=== PATIENT | female | born 1955 | race Caucasian/White ===

== ENCOUNTER → 2017-06-16 | Outpatient (CLI) | payer OTHER ==
--- NOTE | 2017-06-17 09:34 | RAD ---
DATE: 06/16/2017 EXAM: DIGITAL SCREEN BILAT W/CAD HISTORY: Routine screening COMPARISON: 05/02/2016 This study was interpreted with the benefit of Computerized Aided Detection (CAD). The breast parenchyma shows scattered fibroglandular densities. Breast parenchyma level B. FINDINGS: The fibroglandular densities are mildly asymmetric with increased density in the lateral right breast compared to the left. No new or enlarging breast densities are seen. An old biopsy marker is again noted laterally in the left breast. No suspicious microcalcifications are identified. IMPRESSION: Stable mammograms without evidence of malignancy. BI-RADS CATEGORY: 2 BENIGN FINDING(S) RECOMMENDED FOLLOW-UP: 12M 12 MONTH FOLLOW-UP PQRS compliance statement: Patient information was entered into a reminder system with a target due date for the next mammogram. Mammography is a sensitive method for finding small breast cancers, but it does not detect them all and is not a substitute for careful clinical examination. A negative mammogram does not negate a clinically suspicious finding and should not result in delay in biopsying a clinically suspicious abnormality. "Our facility is accredited by the [employer] Mammography [employer]."
== END | disposition home or self-care (01) ==
LOC: MAMMO 16:00
PROVIDERS: ATTEND Family Medicine
DX: Z12.31 Encounter for screening mammogram for malignant neoplasm of breast (principal)
CPT/HCPCS: G0202; 77067

== ENCOUNTER → 2018-08-26 | Outpatient (CLI) | payer OTHER ==
--- NOTE | 2018-08-26 11:22 | RAD ---
DATE: 08/26/2018 EXAM: MAMMO JOSE SCREENING BILATERAL HISTORY: Routine screening COMPARISON: 06/16/2017 This study was interpreted with the benefit of Computerized Aided Detection (CAD). Breast Density: SCATTERED The breast parenchyma shows scattered fibroglandular densities. Breast parenchyma level B. FINDINGS: 2-D and 3-D tomosynthesis imaging was performed in CC and MLO projections. No breast biopsy marker is present laterally on the left. There are scattered small nodular opacities in the breasts, better demonstrated on the current tomosynthesis images. A 6 mm smooth nodule in the medial aspect of the left breast at the 8-9:00 location may be new. No spiculated mass or architectural distortion is evident. No suspicious microcalcifications are evident. IMPRESSION: Small medial left breast nodule which may be new or may simply be better demonstrated on today's tomosynthesis imaging. Sonographic evaluation is suggested. BI-RADS CATEGORY: 0 INCOMPLETE: NEEDS ADDITIONAL IMAGING EVALUATION AND/OR PRIOR MAMMOGRAMS FOR COMPARISON. RECOMMENDED FOLLOW-UP: ADD ADDITIONAL IMAGING PQRS compliance statement: Patient information was entered into a reminder system with a target due date for the next mammogram. Mammography is a sensitive method for finding small breast cancers, but it does not detect them all and is not a substitute for careful clinical examination. A negative mammogram does not negate a clinically suspicious finding and should not result in delay in biopsying a clinically suspicious abnormality. "Our facility is accredited by the [employer] Mammography Program."
== END | disposition home or self-care (01) ==
LOC: MAMMO 10:26
PROVIDERS: ATTEND Family Medicine
DX: Z12.31 Encounter for screening mammogram for malignant neoplasm of breast (principal)
CPT/HCPCS: 77063; 77067

== ENCOUNTER → 2018-09-01 | Outpatient (CLI) | payer OTHER ==
--- NOTE | 2018-09-01 11:12 | RAD ---
Left breast ultrasound, 09/01/2018: History: Breast nodule A targeted ultrasound exam of the left breast was performed at the 8-9:00 location. At the 8:00 location approximately 3 cm from the nipple there is a small hypoechoic nodule measuring 4 x 3 x 5 mm. There are low level internal echoes. No definite posterior acoustic enhancement or shadowing is seen. The nodule is taller than wide. This probably corresponds to the mammographic abnormality, however, it cannot be stated with certainty. At the 8:00 location approximately 10 cm the nipple there is a 6 mm superficial hyperechoic nodule. There is internal color flow. This appearance is most commonly due to a lipoma. The mammogram demonstrates only fatty type shadows in this region. No other abnormality is detected. IMPRESSION: 1. Small 8:00 left breast nodule which probably corresponds to the mammographic abnormality. Ultrasound-guided biopsy is suggested for further evaluation. 2. Probable small superficial lipoma in the medial left breast. Note: The findings were discussed with patient at the time of the examination understands the recommendation for biopsy. She will follow-up with the ordering physician. BI-RADS 4-suspicious abnormality
== END | disposition home or self-care (01) ==
LOC: US 10:15
PROVIDERS: ATTEND Family Medicine
DX: N63.24 Unspecified lump in the left breast, lower inner quadrant (principal)
CPT/HCPCS: 76641

== ENCOUNTER → 2018-09-24 | Outpatient (CLI) | payer OTHER ==
--- NOTE | 2018-10-04 15:09 | PATHOLOGY ---
[facility] Accession Number: [id number] . 01 Material submitted: . LEFT BREAST TISSUE . 01 Clinical history: . Left breast mass . 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 - Fibrocystic changes with the following components: - Stromal fibrosis. - Duct ectasia. - Cystic change. - Apocrine metaplasia. . (JPM:mm; 10/04/2018) [facility]/10/04/2018 . 02 Comment: There is no atypia or evidence of malignancy. . (JPM:mml; 10/04/2018) . 02 Electronically signed: . Leon Carver MD, Pathologist NPI- [id number] . 01 Gross description: . Received in formalin labeled "Cheryl, Claudia, left breast," are multiple needle cores of yellow-sy fibrofatty tissue measuring 2.5 x 0.6 x 0.2 cm in aggregate dimensions. The tissue is submitted in its entirety in cassette A1 through A3. The cold ischemic time is 2 minutes. The total formalin fixation time is 11 hours and 36 minutes. (TSD; 09/24/2018) TOB/TOB . 02 Pathologist provided ICD-10: N60.12, N60.32, N60.42, N60.82, N62 . 02 CPT . 837049 Specimen Comment: A courtesy copy of this report has been sent to Specimen Comment: [phone], , . Specimen Comment: Report sent to ,DR LYNNE / DR ALAN Specimen Comment: A duplicate report has been generated due to demographic updates. Performed at: 01 [facility] [address], [place], [place] [id number] MD Steven Murcia MD Phone: [phone] Performed at: [address] [facility] [id number] [place], [place] [id number] MD Leon Carver MD Phone: [phone]
--- NOTE | 2018-10-05 08:42 | RAD ---
Ultrasound-guided left breast biopsy, 09/24/2018: History: Suspicious breast nodule Previous studies demonstrated a suspicious nodule at the 8:00 location in the left breast. Under local anesthesia, aseptic conditions and sonographic guidance the [employer] biopsy instrument was passed into the posterior margin of this nodule via a medial approach. Multiple 12-gauge vacuum-assisted core samples were obtained. The lesion collapsed during the biopsy process suggesting that it is probably a complicated cyst. A biopsy marker was deposited the biopsy site. The biopsy instrument was then removed and hemostasis obtained. Two-view postprocedural digital mammograms were then obtained to document position of the biopsy marker. The patient tolerated the procedure well and left the department in good condition. The subsequent pathology report indicated the presence of fibrocystic change with apocrine metaplasia and no evidence of malignancy. This is considered to be a concordant finding.
== END | disposition home or self-care (01) ==
LOC: US 09:08
PROVIDERS: ATTEND Surgery
DX: N60.32 Fibrosclerosis of left breast (principal); N60.42 Mammary duct ectasia of left breast; N60.82 Other benign mammary dysplasias of left breast
CPT/HCPCS: 19083; 77065; 88305; C1713; 19085; 76942

== ENCOUNTER → 2019-09-07 | Outpatient (CLI) | payer OTHER ==
--- NOTE | 2019-09-08 09:03 | RAD ---
DATE: 09/07/2019 EXAM: MAMMO JOSE SCREENING BILATERAL HISTORY: Routine screening. Benign breast biopsy of the left. COMPARISON: 08/30/2014 05/02/2016, 06/16/2017, 08/26/2018 bilateral mammographic exams This study was interpreted with the benefit of Computerized Aided Detection (CAD). Breast Density: SCATTERED The breast parenchyma shows scattered fibroglandular densities. Breast parenchyma level B. FINDINGS: Multiple small masses are present bilaterally and stable. No suspicious calcifications or distortion. Small well-circumscribed mass involving the right upper central breast anteriorly is present measuring up to 0.54 cm diameter. It is not definitely seen on prior exams. IMPRESSION: Indeterminate mass involving the right anterior 12:00 region is new in the interval. BI-RADS CATEGORY: 0 INCOMPLETE: NEEDS ADDITIONAL IMAGING EVALUATION AND/OR PRIOR MAMMOGRAMS FOR COMPARISON. RECOMMENDED FOLLOW-UP: ADD ADDITIONAL IMAGING PQRS compliance statement: Patient information was entered into a reminder system with a target due date for the next mammogram. Mammography is a sensitive method for finding small breast cancers, but it does not detect them all and is not a substitute for careful clinical examination. A negative mammogram does not negate a clinically suspicious finding and should not result in delay in biopsying a clinically suspicious abnormality. "Our facility is accredited by the [employer] Mammography Program."
== END | disposition home or self-care (01) ==
LOC: MAMMO 10:03
PROVIDERS: ATTEND Family Medicine
DX: Z12.31 Encounter for screening mammogram for malignant neoplasm of breast (principal); N63.20 Unspecified lump in the left breast, unspecified quadrant; N63.10 Unspecified lump in the right breast, unspecified quadrant
CPT/HCPCS: 77063; 77067

== ENCOUNTER → 2019-09-13 | Outpatient (CLI) | payer OTHER ==
--- NOTE | 2019-09-13 11:08 | RAD ---
DATE: 09/13/2019. EXAM: DIGITAL DIAGNOSTIC RT, ULTRASOUND BREAST RIGHT. HISTORY: Nodules on mammographic screening. Additional imaging is requested. COMPARISON: 09/07/2019, 09/24/2018, 09/01/2018. FINDINGS: Breast Density: SCATTERED The breast parenchyma shows scattered fibroglandular densities. Breast parenchyma level B.. The nodule of concern at the nipple line on the CC view persists on spot compression. It is circumscribed or obscured. Just lateral to this, another less well defined asymmetry is not clearly changed. There is no clearly suspicious mammographic finding. On today's sonography at the right 11-12 o'clock position, circumscribed hypoechoic or anechoic nodules are consistent with benign simple or complicated cysts. These measure 6 x 4 mm, 4 x 4 mm, and 6 x 5 mm, respectively. At the 10:00 position, an elongated cystic focus surrounded by hyperechogenicity corresponds with a bruise and likely represents a focus of fat necrosis or a small resolving hematoma. BI-RADS CATEGORY: 3 PROBABLY BENIGN FINDING(S)-SHORT INTERVAL FOLLOW-UP SUGGESTED. RECOMMENDED FOLLOW-UP: 6M 6 MONTH FOLLOW-UP. 1. 6 month follow-up right mammography and sonography to confirm stability of a focus of what likely represents fat necrosis, and a new nodule that likely corresponds with a benign cysts. PQRS compliance statement: Patient information was entered into a reminder system with a target due date 02/11/2019 for the next mammogram. Mammography is a sensitive method for finding small breast cancers, but it does not detect them all and is not a substitute for careful clinical examination. A negative mammogram does not negate a clinically suspicious finding and should not result in delay in biopsying a clinically suspicious abnormality. "Our facility is accredited by the [employer] Mammography Program."
== END | disposition home or self-care (01) ==
LOC: MAMMO 09:35
PROVIDERS: ATTEND Family Medicine
DX: R92.2 Inconclusive mammogram (principal)
CPT/HCPCS: 76641; 77065

== ENCOUNTER → 2020-03-19 | Outpatient (CLI) | payer OTHER ==
--- NOTE | 2020-03-19 12:01 | RAD ---
DATE: 03/19/2020 10:58 AM EXAM: BREAST ULTRASOUND RIGHT, DIGITAL DIAGNOSTIC MAMMOGRAM RT HISTORY: Six-month follow-up probably benign nodularity in the right breast recalled from screening COMPARISON: Right breast ultrasound and diagnostic mammogram of 09/13/2019, screening mammogram of 09/07/2019, screening mammogram 08/26/2018 TECHNIQUE: CC and MLO full field views of the right breast were performed. Spot MLO compression view was also performed along with CC spot compression view. Breast tomosynthesis was performed in CC and MLO projections. This study was interpreted with the benefit of Computerized Aided Detection (CAD). Targeted ultrasound of the right breast in the area of previous sonographic interest was also performed. FINDINGS: Breast Density: SCATTERED The breast parenchyma shows scattered fibroglandular densities. Breast parenchyma level B Nodular parenchymal pattern with no new or developing mass is identified. The nodule in the slightly medial superior right breast recalled from screening has not significantly changed measuring approximately 5 mm . Targeted ultrasound of the right breast identifies at the 10:00 position 6 cm from the nipple a 4 mm cyst with low-level internal echoes and sharp circumscribed posterior margin with posterior acoustic enhancement. IMPRESSION: Probably benign fibrocystic change in the superior right breast. Recommend a six-month follow-up right diagnostic mammogram of the time she is due for bilateral screening mammogram. BI-RADS CATEGORY: 3 PROBABLY BENIGN FINDING(S)-SHORT INTERVAL FOLLOW-UP SUGGESTED RECOMMENDED FOLLOW-UP: 6M 6 MONTH FOLLOW-UP Bilateral diagnostic mammogram can be performed at the time she is due for routine screening in 6 months. PQRS compliance statement: Patient information was entered into a reminder system with a target due date 09/08/2020 for the next mammogram. Mammography is a sensitive method for finding small breast cancers, but it does not detect them all and is not a substitute for careful clinical examination. A negative mammogram does not negate a clinically suspicious finding and should not result in delay in biopsying a clinically suspicious abnormality. "Our facility is accredited by the [employer] Mammography Program."
== END | disposition home or self-care (01) ==
LOC: MAMMO 12:05
PROVIDERS: ATTEND Family Medicine
DX: R92.8 Other abnormal and inconclusive findings on diagnostic imaging of breast (principal)
CPT/HCPCS: 76641; 77065

== ENCOUNTER → 2020-10-02 | Outpatient (CLI) | payer OTHER ==
--- NOTE | 2020-10-02 13:53 | RAD ---
EXAM: Bilateral digital diagnostic mammogram with tomosynthesis. HISTORY: 65-year-old female presents for follow-up evaluation of suspected benign findings within the right breast demonstrated on a sonogram and sonogram dated 03/19/2020. The patient is due for lateral mammography. TECHNIQUE: Full-field digital craniocaudal and mediolateral oblique 2D and 3D tomosynthesis images of both breasts are obtained for evaluation. Computer aided detection was applied. COMPARISON: 03/19/2020, 09/13/2019, 09/07/2019, 09/24/2018 BREAST PARENCHYMAL DENSITY: Level B - Scattered fibroglandular densities. FINDINGS: There is no new suspicious mass, microcalcification or region of architectural distortion. There are stable benign-appearing areas of nodularity and asymmetry within both breasts. There are bi opsy clips within the left breast. There are few benign calcifications. IMPRESSION: 1. No new suspicious mammographic finding. 2. BI-RADS Category 2: Benign finding(s). RECOMMENDATION: Annual mammography is recommended. If your mammogram demonstrates that you have dense breast tissue, which could hide abnormalities, and if you have other risk factors for breast cancer that have been identified, you might benefit from s upplemental screening tests that may be suggested by your ordering physician. Dense breast tissue, i n and of itself, is a relatively common condition. This information is not provided to cause undue c oncern, but rather to raise your awareness and to promote discussion with your physician regarding th e presence of other risk factors, in addition to dense breast tissue. A report of your mammography re sults will be sent to you and your physician. You should contact your physician if you have any ques tions or concerns regarding this report. Mammography is a sensitive method for finding small breast cancers, but it does not detect them all a nd is not a substitute for careful clinical examination. A negative mammogram does not negate a clin ically suspicious finding and should not result in delay in biopsying a clinically suspicious abnorma lity. PQRS compliance statement - Patient information was entered into a reminder system with a target due date for the next mammogram. "Our facility is accredited by the [employer] Mammography Program." Electronically signed by: Elzbieta Dent MD (10/02/2020 1:50 PM) [id number]
== END ==
LOC: MAMMO 12:52
PROVIDERS: ATTEND Family Medicine
DX: R92.2 Inconclusive mammogram (principal)
CPT/HCPCS: 77066; G0279; 77062

== ENCOUNTER → 2021-10-22 | Outpatient (CLI) | payer OTHER ==
--- NOTE | 2021-10-22 16:20 | RAD ---
Digital bilateral screening mammogram with tomography dated 10/22/2021. INDICATION: 66 years of age asymptomatic female patient presents for screening mammography. TECHNIQUE: Full field craniocaudal and mediolateral oblique images of both breasts were obtained usi ng digital technique with tomosynthesis and also analyzed with computer-aided detection software. . COMPARISON: 11/08/2018 10/02/2020. BREAST COMPOSITION: Category B: There are scattered fibroglandular densities. FINDINGS: There are circumscribed nodules in the right breast that are unchanged from prior exams. No suspiciou s mass or clustered microcalcification. Parenchymal pattern is stable. No architectural distortion. IMPRESSION: Stable bilateral mammogram RECOMMENDATION: Annual screening mammography is recommended, unless clinically indicated sooner based on symptoms or change in physical exam. BIRADS 2: BENIGN This study was interpreted with the benefit of Computerized Aided Detection (CAD). Recommend follow-up in one year. Patient information is entered into the reminder system with a target due date for the next screening mammogram. Mammography is the most sensitive method for finding small breast cancers, but it does not detect the m all and is not a substitute for careful clinical examination. A negative mammogram does not negate a clinically suspicious finding and should not result in delay in biopsying a clinically suspicious a bnormality. "Our facility is accredited by the [employer] Mammography Program." Electronically signed by: Abner Johnston MD (10/22/2021 4:18 PM) [id number]
== END ==
LOC: MAMMO 15:32
PROVIDERS: ATTEND Family Medicine
DX: Z12.31 Encounter for screening mammogram for malignant neoplasm of breast (principal)
CPT/HCPCS: 77063; 77067